=== PATIENT | male | born 1955 | race Caucasian/White ===

== ENCOUNTER 2019-06-21 19:28 | Emergency (ER) | payer OTHER ==
[~2019-06-21] VITALS: Ht 182.9 cm; Wt 90.7 kg
[2019-06-21 19:32] VITALS: BP_SYST 100
--- NOTE | 2019-06-21 19:32 | NUR ---
Patient triaged and placed in waiting room. VSS and patient appears in no acute distress at this time. Accompanied by TRANSPORTER, awaiting available bed, and MD notified of need for MSE.
[2019-06-21 22:17] LABS: BASOPHILS # (AUTO) 0.1 K/uL (0.0-0.2); BASOPHILS % (AUTO) 0.9 % (0.0-2.0); EOSINOPHILS # (AUTO) 0.2 K/uL (0.0-0.4); EOSINOPHILS % (AUTO) 2.4 % (0.0-4.0); HEMATOCRIT 51.1 % (36-54); HEMOGLOBIN 16.6 g/dL (14.0-18.0); LYMPHOCYTES # (AUTO) 1.7 K/uL (1.0-5.5); LYMPHOCYTES % (AUTO) 20.4 % (20.5-51.5); MEAN CORPUSCULAR HEMOGLOBIN 27 pg (27-31); MEAN CORPUSCULAR HGB CONC 33 % (32-36); MEAN CORPUSCULAR VOLUME 83 fL (79.0-98.0); MONOCYTES # (AUTO) 0.6 K/uL (0.0-1.0); MONOCYTES % (AUTO) 7.2 % (1.7-9.3); NEUTROPHILS # (AUTO) 5.6 K/uL (1.8-7.7); NEUTROPHILS % (AUTO) 69.1 % (40.0-70.0); PLATELET COUNT (AUTO) 233 K/uL (130-430); RED BLOOD CELL COUNT(AUTO) 6.13 MIL/uL (4.2-6.2); RED CELL DISTRIBUTION WIDTH 16.2 % (9.0-15.0); WHITE BLOOD COUNT (AUTO) 8.1 K/uL (4.8-10.8)
[2019-06-21 22:26] LABS: ANION GAP 9 (5-15); CALCIUM 9.2 mg/dL (8.4-11.0); CHLORIDE 101 mmol/L (98-107); CREATININE 1.45 mg/dL (0.55-1.30); GLUCOSE 198 mg/dL (70-99); POTASSIUM 3.5 mmol/L (3.5-5.1); SODIUM SERUM 135 mmol/L (136-145); UREA NITROGEN, BLOOD 26 mg/dL (8-21)
[2019-06-21 22:30] LABS: ALANINE AMINOTRANSFERASE 36 U/L (12-78); ALBUMIN 4.1 g/dL (3.4-4.8); ASPARTATE AMINOTRANSFERASE 27 U/L (10-37); CHOLESTEROL 227 mg/dL (<200); HDL CHOLESTEROL 36 mg/dL (>45); LDL CHOLESTEROL 146 mg/dL (<100); TOTAL BILIRUBIN 0.5 mg/dL (0.0-1.0); TRIGLYCERIDES 212 mg/dL (30-150)
[2019-06-21 22:42] LABS: GFR AFRICAN AMERICAN 64 mL/min (>90)
[2019-06-21 22:43] LABS: ACETAMINOPHEN < 1 ug/mL (1-30); ALCOHOL, BLOOD < 3 mg/dL (<10)
--- NOTE | 2019-06-22 03:52 | NUR ---
Patient to ER bed 6 to gown for evaluation. Side rails up. Report given to MILENA ORTIZ.
--- NOTE | 2019-06-22 04:10 | NUR ---
SENT HERE FROM [place] FOR MEDICAL CLEARANCE FOR ADMISSION TO [facility] FOR INCREASING DEPRESSION,SELF ISOLATION. LAB.RESULTS BACK EXCEPT URINALYSIS/DRUG SCREEN. URINAL PROVIDED FOR SPECIMEN COLLECTION.
--- NOTE | 2019-06-22 06:25 | NUR ---
URINE SPECIMEN COLLECTED AND SENT TO THE LAB.
[2019-06-22 06:31] LABS: BILIRUBIN,URINE NEGATIVE (NEGATIVE); BLOOD, URINE NEGATIVE (NEGATIVE); CLARITY/URINE CLEAR (CLEAR); COLOR,URINE YELLOW (YELLOW); GLUCOSE,URINE NEGATIVE (NEGATIVE); KETONES,URINE NEGATIVE (NEGATIVE); LEUKOCYTE ESTERASE ,URINE NEGATIVE (NEGATIVE); NITRITE, URINE NEGATIVE (NEGATIVE); PH,URINE 5.5 (5.0-8.0); PROTEIN URINE NEGATIVE (NEGATIVE); UROBILINOGEN,URINE 0.2 (0.2-1.0)
[2019-06-22 06:42] LABS: BARBITURATE, URINE NEGATIVE (NEG <=200); BENZODIAZEPINE, URINE NEGATIVE (NEG <=150); CANNABINOID, URINE NEGATIVE (NEG <=50); COCAINE, URINE NEGATIVE (NEG <=150); METHAMPHETAMINES SCREEN,URINE NEGATIVE (NEG <=500); OPIATE, URINE NEGATIVE (NEG <=100); PHENCYCLIDINE SCREEN,URINE NEGATIVE (NEG <=25); UR TRICYCLIC ANTIDEPRESSANTS NEGATIVE (NEG <=300); URINE AMPHETAMINE NEGATIVE (NEG <=500); URINE METHADONE NEGATIVE (NEG <=200); URINE OXYCODONE SCREEN NEGATIVE (NEG <=100); URINE PROPOXYPHENE SCREEN NEGATIVE (NEG <=300)
--- NOTE | 2019-06-22 07:23 | NUR ---
PT. MEDICALLY CLEARED. REPORT GIVEN TO MILE ORTIZ. PT. GOING TO [facility] ROOM 54-A UNDER THE SERVICES OF JOSE GUADALUPE AND NARINDER. ENDORSED CARE TO AM SHIFT NURSE GERARDO ORTIZ STABLE. PT. REMAINS STABLE AND PAIN FREE.
[2019-06-22 07:33] VITALS: BP_SYST 122
--- NOTE | 2019-06-22 07:36 | NUR ---
Patient to be transferred to [facility]. Is being transferred due to higher level of care. Receiving facility has accepting physician and available space. ER physician has signed transfer form. Patient or responsible constitution party has agreed to transfer and signed form. Patient belongings inventoried and will be sent with patient. Copy of nursing notes, lab reports, EKG, Physicians Orders and X-rays to be sent with patient. Report called to DIANA TREADWELL at receiving facility. Receiving physician is DR. BARCENAS. [facility] has been called for transfer. ETA is [id number], REPEAT CALL MADE REGARDING TRANSFER.
--- NOTE | 2019-06-22 07:47 | NUR ---
[facility] HAS ARRIVED FOR PATIENT TRANSFER. PATIENT IS COOPERATIVE.
== END 2019-06-22 07:33 ==
LOC: SED 19:28
DX: R45.1 Restlessness and agitation (principal); Z88.0 Allergy status to penicillin
CPT/HCPCS: 36415; 80053; 80061; 80164; 80307; 81003; 83036; 85025; 87081; 99285; G0480; G0481; G0482